=== PATIENT | female | born 1990 | race Caucasian/White ===

== ENCOUNTER → 2023-05-15 07:56 | Outpatient (REF) | payer OTHER, SELFPAY | LOC: PNTC 07:56 | PROVIDERS: ATTENDING PHYSICIAN Obstetrics & Gynecology | DX: Z36.0 Encounter for antenatal screening for chromosomal anomalies (principal) | CPT/HCPCS: 76801; 76813 ==

== ENCOUNTER → 2023-07-09 08:31 | Outpatient (REF) | payer OTHER, SELFPAY | LOC: PNTC 08:31 | PROVIDERS: ATTENDING PHYSICIAN Obstetrics & Gynecology | DX: O09.819 Supervision of pregnancy resulting from assisted reproductive technology, unspecified trimester (principal); O34.219 Maternal care for unspecified type scar from previous cesarean delivery | CPT/HCPCS: 76811; 93976 ==

== ENCOUNTER → 2023-08-07 08:25 | Outpatient (REF) | payer OTHER, SELFPAY | LOC: PNTC 08:25 | PROVIDERS: ATTENDING PHYSICIAN Obstetrics & Gynecology | DX: O09.819 Supervision of pregnancy resulting from assisted reproductive technology, unspecified trimester (principal) | CPT/HCPCS: 76817; 93976 ==

== ENCOUNTER → 2023-09-04 09:46 | Outpatient (REF) | payer OTHER, SELFPAY | LOC: PNTC 09:46 | PROVIDERS: ATTENDING PHYSICIAN Obstetrics & Gynecology | DX: O09.529 Supervision of elderly multigravida, unspecified trimester (principal) | CPT/HCPCS: 76816; 76817 ==

== ENCOUNTER → 2023-10-02 09:32 | Outpatient (REF) | payer OTHER, SELFPAY | LOC: PNTC 09:32 | PROVIDERS: ATTENDING PHYSICIAN Obstetrics & Gynecology | DX: O44.42 Low lying placenta NOS or without hemorrhage, second trimester (principal) | CPT/HCPCS: 76816 ==

== ENCOUNTER 2023-10-18 21:24 | Observation (INO) | payer OTHER, SELFPAY ==
[2023-10-18 21:36] VITALS: BMI 27.3
[2023-10-18 22:02] LABS: % Basophils 0.2 % (0-2); % Eosinophils 0.3 % (0-6); % Immature Granulocytes 0.3 % (0-0.5); % Lymphocytes 6.3 % (20.5-51.1); % Monocytes 7.5 % (1.7-9.3); % Neutrophils 85.4 % (42.2-75.2); Absolute Lymphocytes 0.8 10^3/uL (1.2-3.4); Absolute Neutrophils 11.3 10^3/uL (1.4-6.5); Hematocrit 34.4 % (37.0-47.0); Hemoglobin 12.1 g/dL (12.0-16.0); Mean Corp Hgb Conc. 35.2 g/dL (33.0-37.0); Mean Corpuscular Hgb 30.6 pg (27.0-31.0); Mean Corpuscular Volume 86.9 fL (81.0-99.0); Mean Platelet Volume 10.9 fL (7.4-10.4); Nucleated Red Blood Cells % 0 %; Platelet Count 192 10^3/uL (130-400); Red Blood Cell Count 3.96 10^6/uL (4.20-5.40); Red Cell Dist. Width 13.3 % (11.5-14.5); White Blood Cell Count 13.2 10^3/uL (4.8-10.8)
[2023-10-18 22:04] VITALS: BP 118/74
[2023-10-18 22:13] LABS: COVID-19 Antigen Negative (Negative)
[2023-10-18 22:15] LABS: Urine Albumin Negative (Neg - Trace); Urine Bilirubin Negative (Negative); Urine Character Clear (Clear); Urine Color Yellow; Urine Glucose Negative (Negative); Urine Ketone Negative (Negative); Urine Leukocyte Negative (Negative); Urine Nitrite Negative (Negative); Urine Occult Blood Negative (Negative); Urine Urobilinogen Negative (Neg - 1+)
[2023-10-18 22:54] LABS: ALT (SGPT) < 10 U/L (0-35); AST (SGOT) 13 U/L (14-36); Albumin 3.8 g/dl (3.5-5.0); Alkaline Phosphatase 86 U/L (38-126); Blood Urea Nitrogen 5 mg/dl (7-17); Carbon Dioxide 18 mmol/L (22-30); Chloride 109 mmol/L (98-107); Estimated Creatinine Clearance 110 ml/min; Glucose 92 mg/dl (70-99); Potassium 3.9 mmol/L (3.5-5.1); Sodium 134 mmol/L (135-145); Total Bilirubin 1.4 mg/dl (0.2-1.3); Total Protein 6.3 g/dl (6.3-8.2); eGFR > 60.00
[2023-10-19] MEDS: ANCEF 5 IV (06:19)
== END 2023-10-19 07:58 | disposition home or self-care (01) ==
LOC: LDRP 21:24
PROVIDERS: ADMITTING PHYSICIAN Obstetrics & Gynecology; FAMILY PHYSICIAN Family Medicine
DX: N20.0 Calculus of kidney (principal); Z3A.34 34 weeks gestation of pregnancy; R68.83 Chills (without fever); R09.81 Nasal congestion; R10.9 Unspecified abdominal pain; R05.9 Cough, unspecified; Z11.52 Encounter for screening for COVID-19
CPT/HCPCS: 80053; 81003; 85025; 86850; 86900; 86901; 87086; 87502; 87811; G0378

== ENCOUNTER → 2023-10-31 08:26 | Outpatient (REF) | payer OTHER, SELFPAY | LOC: PNTC 08:26 | PROVIDERS: ATTENDING PHYSICIAN Obstetrics & Gynecology | DX: O44.42 Low lying placenta NOS or without hemorrhage, second trimester (principal) | CPT/HCPCS: 59025; 76816 ==

== ENCOUNTER 2023-11-05 22:25 | Observation (INO) | payer OTHER, SELFPAY ==
[2023-11-05 22:44] VITALS: BP 114/73; BMI 27.5
== END 2023-11-05 23:27 | disposition home or self-care (01) ==
LOC: LDRP 22:25
PROVIDERS: ADMITTING PHYSICIAN Obstetrics & Gynecology
DX: O36.8130 Decreased fetal movements, third trimester, not applicable or unspecified (principal); Z3A.37 37 weeks gestation of pregnancy; Z88.2 Allergy status to sulfonamides; J45.990 Exercise induced bronchospasm
CPT/HCPCS: 59025; G0378

== ENCOUNTER → 2023-11-07 08:48 | Outpatient (REF) | payer OTHER, SELFPAY | LOC: PNTC 08:48 | PROVIDERS: ATTENDING PHYSICIAN Obstetrics & Gynecology | DX: O44.40 Low lying placenta NOS or without hemorrhage, unspecified trimester (principal) | CPT/HCPCS: 59025; 76815 ==

== ENCOUNTER → 2023-11-14 08:52 | Outpatient (REF) | payer OTHER, SELFPAY | LOC: PNTC 08:52 | PROVIDERS: ATTENDING PHYSICIAN Obstetrics & Gynecology | DX: O44.40 Low lying placenta NOS or without hemorrhage, unspecified trimester (principal) | CPT/HCPCS: 59025; 76815 ==

== ENCOUNTER 2023-11-16 09:00 | Inpatient (IN) | payer OTHER, SELFPAY ==
[2023-11-16 09:03] VITALS: BP 129/81; BMI 27.5
[2023-11-16 09:48] LABS: Hematocrit 33.9 % (37.0-47.0); Hemoglobin 11.8 g/dL (12.0-16.0); Mean Corp Hgb Conc. 34.8 g/dL (33.0-37.0); Mean Corpuscular Hgb 29.9 pg (27.0-31.0); Mean Corpuscular Volume 85.8 fL (81.0-99.0); Mean Platelet Volume 10.8 fL (7.4-10.4); Platelet Count 198 10^3/uL (130-400); Red Blood Cell Count 3.95 10^6/uL (4.20-5.40); Red Cell Dist. Width 12.9 % (11.5-14.5); White Blood Cell Count 7.3 10^3/uL (4.8-10.8)
[2023-11-16] MEDS: LR 1000 IV ×2 (10:08→10:46)
[2023-11-16] MEDS: TYLENOL 1000 MG PO (11:12)
[2023-11-16] MEDS: BICITRA 30 ML PO (11:12)
[2023-11-16] MEDS: ANCEF 10 IV (11:12)
[2023-11-16] MEDS: TORADOL 15 MG IV ×2 (13:32→18:36)
[2023-11-16] MEDS: BENADRYL 25 MG IV (14:25)
[2023-11-16] MEDS: BENADRYL 25 MG PO (18:47)
[2023-11-17] MEDS: TORADOL 15 MG IV ×3 (00:28→12:57)
[2023-11-17 05:20] LABS: Hematocrit 29.3 % (37.0-47.0); Hemoglobin 10.1 g/dL (12.0-16.0); Mean Corp Hgb Conc. 34.5 g/dL (33.0-37.0); Mean Corpuscular Hgb 29.3 pg (27.0-31.0); Mean Corpuscular Volume 84.9 fL (81.0-99.0); Mean Platelet Volume 11.1 fL (7.4-10.4); Platelet Count 188 10^3/uL (130-400); Red Blood Cell Count 3.45 10^6/uL (4.20-5.40); Red Cell Dist. Width 13.1 % (11.5-14.5); White Blood Cell Count 8.4 10^3/uL (4.8-10.8)
[2023-11-17] MEDS: PRENATAL PLUS 1 TABLET PO (07:37)
--- NOTE | 2023-11-17 17:19 | W.PN.ANS.POP ---
Anesthesia Post Operative
- Anesthesia Post Op Note
Vital Signs Stable-See Nursing Note: Yes
Airway Patent: Yes
Adequate Pain Control: Yes
Change in Mental Status: No
Current Postoperative Nausea & Vomiting: No
Anesthesia Complications: No
General Anesthetic Recall: No
Unplanned Admission: No
Post Op Hydration Adequate: Yes
[2023-11-17] MEDS: TYLENOL 650 MG PO (19:38)
[2023-11-17] MEDS: MOTRIN 600 MG PO (19:38)
[2023-11-18] MEDS: TYLENOL 650 MG PO ×2 (01:38→08:06)
[2023-11-18] MEDS: MOTRIN 600 MG PO ×2 (01:38→08:06)
[2023-11-18] MEDS: PRENATAL PLUS 1 TABLET PO (08:05)
[2023-11-18] MEDS: SENOKOT-S 1 TABLET PO (08:07)
--- NOTE | 2023-11-18 08:16 | W.DS.TRANS ---
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
-
Discharge Instructions:
Discharge Diagnosis/Procedures Section
Instructions:
Stand-Alone Forms: LDRP Delivery
Changes to Home Medications: No
Discharge Medications:
DC Medications w/original date entered in [facility]
cetirizine 10 mg capsule (Zyrtec) 10 mg PO DAILY PRN allergies 10/18/23
fluticasone propionate 50 mcg/actuation nasal spray,suspension 1 spray intranasal BID PRN allergies 10/18/23
prenat.vits,sangeeta,edj-qopc-tgmcm 1 tab PO DAILY Supplement 10/18/23
acetaminophen 325 mg capsule (Tylenol) 650 mg PO Q6H PRN sinus pressure 11/05/23
ibuprofen 600 mg tablet 600 mg PO Q6HPRN PRN cramps #45 tabs 11/18/23
Home Medication Changes
Pending Results: No
[2023-11-20 18:41] LABS: Syphilis/T. pallidum Ab Reflex Negative (Negative)
== END 2023-11-18 11:19 | disposition home or self-care (01) | DRG 787 ==
LOC: LDRP 09:00
PROVIDERS: ADMITTING PHYSICIAN Obstetrics & Gynecology; ATTENDING PHYSICIAN Obstetrics & Gynecology
PROC: 10907ZC Drainage of Amniotic Fluid, Therapeutic from Products of Conception, Via Natural or Artificial Opening (ICD-10-PCS; 2023-11-16)
PROC: 10D00Z1 Extraction of Products of Conception, Low, Open Approach (ICD-10-PCS; 2023-11-16)
DX: O34.211 Maternal care for low transverse scar from previous cesarean delivery (principal); G91.9 Hydrocephalus, unspecified; O99.354 Diseases of the nervous system complicating childbirth; Z37.0 Single live birth; Z3A.39 39 weeks gestation of pregnancy; Z98.2 Presence of cerebrospinal fluid drainage device; Z88.2 Allergy status to sulfonamides
CPT/HCPCS: 85027; 86780; 86850; 86900; 86901

== ENCOUNTER → 2024-11-26 14:34 | Outpatient (REF) | payer OTHER, SELFPAY | LOC: WDC 14:34 | PROVIDERS: ATTENDING PHYSICIAN Obstetrics & Gynecology | DX: Z12.31 Encounter for screening mammogram for malignant neoplasm of breast (principal) | CPT/HCPCS: 77063; 77067 ==